=== PATIENT | male | born 2000 | race Caucasian/White ===

== ENCOUNTER 2022-06-12 13:30 | Emergency (ER) | payer MEDICAID, SELFPAY ==
--- NOTE | ~2022-06-12 | XR_ITS ---
EXAMINATION: XR HAND, LEFT CLINICAL INFORMATION: Left hand pain status post injury. COMPARISON: None TECHNIQUE: PA, lateral, and oblique views of the left hand. An indicator arrow points to the second digit. FINDINGS: A bandage overlies the second digit. There is no acute fracture or dislocation. The joint spaces are unremarkable. The carpal bones are normally aligned. The distal radius and ulna are intact. The soft tissues are unremarkable. No radiopaque foreign body. XR/XR hand LT min 3V IMPRESSION: No acute fracture or significant degenerative changes. No radiopaque foreign body.
--- NOTE | 2022-06-12 13:35 | ED.UPPEXIN ---
HPI - Extremity Injury (Upper) General Chief Complaint: Wound/Laceration <CHRISTIAN Smith - Last Filed: 06/12/22 13:36> Stated Complaint: Finger lac <CHRISTIAN Smith - Last Filed: 06/12/22 13:36> Time Seen by Provider: 06/12/22 14:14 <CHRISTIAN Smith - Last Filed: 06/12/22 13:36> Source: patient and family ( co-worker at bedside) <CHRISTIAN Camargo - Last Filed: 06/12/22 15:22> Mode of arrival: ambulatory <CHRISTIAN Camargo Last Filed: 06/12/22 15:22> Limitations: language barrier ( Bulgarian-speaking) <CHRISTIAN Camargo Last Filed: 06/12/22 15:22> History of Present Illness HPI narrative: 21-year-old male presenting to the ER with complaints of a left index finger laceration that occurred prior to arrival while he was at work cutting wrong ribs. He denies being up-to-date on tetanus. He denies any bony tenderness or thoughts of foreign bodies. He denies any paresthesias or any other symptoms complaints or concerns at this time. <CHRISTIAN Camargo - Last Filed: 06/12/22 15:22> MD complaint: injury to: left and finger ( Index finger) <CHRISTIAN Camargo - Last Filed: 06/12/22 15:22> Onset (ago): minute(s) ( prior to arrival) <CHRISTIAN Camargo Last Filed: 06/12/22 15:22> Other injuries: none <CHRISTIAN Camargo Last Filed: 06/12/22 15:22> Place: work <CHRISTIAN Camargo Last Filed: 06/12/22 15:22> Severity: mild <CHRISTIAN Camargo Last Filed: 06/12/22 15:22> Relieving factors: none <CHRISTIAN Camargo Last Filed: 06/12/22 15:22> Exacerbating factors: movement of extremity ( and palpation) <CHRISTIAN Camargo Last Filed: 06/12/22 15:22> Context: laceration <CHRISTIAN Camargo Last Filed: 06/12/22 15:22> Associated symptoms: denies other symptoms <CHRISTIAN Camargo - Last Filed: 06/12/22 15:22> Treatments prior to arrival: bandage <CHRISTIAN Camargo - Last Filed: 06/12/22 15:22> Related Data Home Medications: Previous Rx's Medication Instructions Recorded cephalexin 500 mg capsule 500 mg PO BID 10 days #20 caps 06/12/22 ibuprofen 800 mg tablet 800 mg PO Q8H PRN pain #14 tabs 06/12/22 <CHRISTIAN Smith - Last Filed: 06/12/22 13:36> Allergies/Adverse Reactions: Allergies Allergy/AdvReac Type Severity Reaction Status Date / Time No Known Allergies Allergy Verified 06/12/22 13:34 <CHRISTIAN Smith - Last Filed: 06/12/22 13:36> Review of Systems Review of Systems: Constitutional : No Fever, No Chills, Cardiovascular : No Chest Pain, No SOB Respiratory : No Dyspnea Gastrointestinal : No abdominal pain Musculoskeletal : No Joint Swelling Skin : positive skin laceration, No Foreign bodies, No rash, No surrounding erythema Neuro : No Weakness, No Numbness/tingling Psych : No SI/HI/thoughts of self injury <CHRISTIAN Camargo - Last Filed: 06/12/22 15:22> Yes all other systems are reviewed and are negative <CHRISTIAN Camargo - Last Filed: 06/12/22 15:22> PMFSH Past Medical History Attestation statement: The following information was validated with the patient. <CHRISTIAN Camargo - Last Filed: 06/12/22 15:22> Source: old records reviewed and nursing notes reviewed <CHRISTIAN Camargo - Last Filed: 06/12/22 15:22> Medical History: Medical History Asthma <CHRISTIAN Smith - Last Filed: 06/12/22 13:36> Social History Social History: Social History Advance Directives: No Advance Directives Information Provided: No <CHRISTIAN Smith - Last Filed: 06/12/22 13:36> Physical Exam Vital Signs: Vital Signs: Last Vital Signs Temp 97.7 F 06/12/22 13:38 Pulse 105 H 06/12/22 13:38 Resp 16 06/12/22 13:38 BP 141/115 H 06/12/22 13:38 Pulse Ox 98 06/12/22 13:38 O2 Del Method 06/12/22 13:38 BMI result Body Mass Index 23.5 <CHRISTIAN Smith - Last Filed: 06/12/22 13:36> Vital Signs: Last Vital Signs Temp 97.7 F 06/12/22 13:38 Pulse 105 H 06/12/22 13:38 Resp 16 06/12/22 13:38 BP 141/115 H 06/12/22 13:38 Pulse Ox 98 06/12/22 13:38 O2 Del Method 06/12/22 13:38 BMI result Body Mass Index 23.5 vital signs have been reviewed as normal and appeared to be correct. Blood pressure 141/115 Heart rate 105. Respiration rate normal. Temperature normal. Oxygen saturation normal. <CHRISTIAN Camargo - Last Filed: 06/12/22 15:22> Appearance: Alert. Oriented X3. No acute distress. Head: Normal external exam. Normocephalic. Atraumatic. Eyes: PERRLA. EOMI. Conjunctiva and sclera normal. Eyelids normal. ENT: Pharynx normal. Uvula midline. Moist mucous membranes. Neck: Normal inspection. Neck supple. FROM. CVS: Normal heart rate and rhythm. Respiratory: No respiratory distress. Painless inspiration. Skin: Skin warm and dry. Normal skin color. Normal skin turgor. patient with 1 and have flap laceration to left index finger at the radial aspect no active bleeding or foreign bodies or bony tenderness or obvious ligamentous or tendon injury noted or signs of infection. No additional rashes/lesions/lacerations noted. Extremities: Extremities exhibit normal range of motion. Extremities nontender. Neuro: Oriented X 3. No motor deficit. No sensory deficit. Reflexes normal. Normal steady gait. No focal neuro deficits noted. Vascular: + radial pulses/+ 2 distal pedal pulses/+2 dorsalis pedis b/l. Normal cap refill. No cyanosis noted to upper extremity nails and lower extremity toes nails. 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 Actively bleeding on arrival. Limited ROM due to pain. XR, tdap, abx, lidocaine ordered for anticipated suture repair. 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 Actively bleeding on arrival. Limited ROM due to pain. XR, tdap, abx, lidocaine ordered for anticipated suture repair. <CHRISTIAN Camargo - Last Filed: 06/12/22 15:22> Reevaluation(s) Reevaluation #1: Patient now status post laceration repair with 7 interrupted simple running stitch. Tetanus updated. imaging obtained and negative for any acute processes. Not consistent with fracture/obvious ligamentous or tendon injury or infection. Not consistent with arterial bleed. Will DC home with symptomatic treatment antibiotics along with instructions to return in 10-14 days for suture removal and to follow up prior if signs of infection. Patient understands agrees the plan. <CHRISTIAN Camargo - Last Filed: 06/12/22 15:22> Time: 15:20 <CHRISTIAN Camargo - Last Filed: 06/12/22 15:22> Medications Administered Discontinued Medications Generic Name Dose Route Start Last Admin Trade Name Brice PRN Reason Stop Dose Admin Amoxicillin/Clavulanate Potassium 875 mg 06/12/22 13:34 06/12/22 14:16 Amoxicillin/Potassium Clav 875 Mg Tablet PO 06/12/22 13:35 875 mg ONCE ONE Administration Diphtheria/Tetanus/Acell Pertussis 0.5 ml 06/12/22 13:34 06/12/22 14:17 Diphth,Pertus(Acell),Tet Adult 0.5 Ml Syringe IM 06/12/22 13:35 0.5 ml .ONCE ONE Administration Ibuprofen 600 mg 06/12/22 13:34 06/12/22 14:16 Ibuprofen 600 Mg Tablet PO 06/12/22 13:35 600 mg ONCE ONE Administration Lidocaine HCl 5 ml 06/12/22 14:26 06/12/22 14:28 Lidocaine Hcl 1 % Mpf 5 Ml Vial SUBCUT 06/12/22 14:27 5 ml ONCE ONE Administration Lidocaine HCl 5 ml 06/12/22 14:26 06/12/22 14:28 Lidocaine Hcl 1 % Mpf 5 Ml Vial SUBCUT 06/12/22 14:27 5 ml ONCE ONE Administration <CHRISTIAN Smith - Last Filed: 06/12/22 13:36> Medications Administered Discontinued Medications Generic Name Dose Route Start Last Admin Trade Name Freq PRN Reason Stop Dose Admin Amoxicillin/Clavulanate Potassium 875 mg 06/12/22 13:34 06/12/22 14:16 Amoxicillin/Potassium Clav 875 Mg Tablet PO 06/12/22 13:35 875 mg ONCE ONE Administration Diphtheria/Tetanus/Acell Pertussis 0.5 ml 06/12/22 13:34 06/12/22 14:17 Diphth,Pertus(Acell),Tet Adult 0.5 Ml Syringe IM 06/12/22 13:35 0.5 ml .ONCE ONE Administration Ibuprofen 600 mg 06/12/22 13:34 06/12/22 14:16 Ibuprofen 600 Mg Tablet PO 06/12/22 13:35 600 mg ONCE ONE Administration Lidocaine HCl 5 ml 06/12/22 14:26 06/12/22 14:28 Lidocaine Hcl 1 % Mpf 5 Ml Vial SUBCUT 06/12/22 14:27 5 ml ONCE ONE Administration Lidocaine HCl 5 ml 06/12/22 14:26 06/12/22 14:28 Lidocaine Hcl 1 % Mpf 5 Ml Vial SUBCUT 06/12/22 14:27 5 ml ONCE ONE Administration <CHRISTIAN Camargo - Last Filed: 06/12/22 15:22> Medical Decision Making Independent Interpretation I performed an independent interpretation of an: Plain X-Ray <CHRISTIAN Camargo - Last Filed: 06/12/22 15:22> Interpretation: CLINICAL INFORMATION: Left hand pain status post injury.? COMPARISON: None? TECHNIQUE: PA, lateral, and oblique views of the left hand. An indicator arrow points to the second digit. FINDINGS: A bandage overlies the second digit. There is no acute fracture or dislocation. The joint spaces are unremarkable. The carpal bones are normally aligned. The distal radius and ulna are intact. The soft tissues are unremarkable. No radiopaque foreign body. XR/XR hand LT min 3V IMPRESSION: No acute fracture or significant degenerative changes. No radiopaque foreign body. <CHRISTIAN Camargo - Last Filed: 06/12/22 15:22> Procedures Laceration Laceration 1: Site: hand ( Index finger) <CHRISTIAN Camargo - Last Filed: 06/12/22 15:22> Side (If applicable): left <CHRISTIAN Camargo - Last Filed: 06/12/22 15:22> Size (cm): 2 <CHRISTIAN Camargo - Last Filed: 06/12/22 15:22> Description: flap <CHRISTIAN Camargo - Last Filed: 06/12/22 15:22> Depth: simple, single layer <CHRISTIAN Camargo - Last Filed: 06/12/22 15:22> Local Anesthetic: lidocaine 1% <CHRISTIAN Camargo Last Filed: 06/12/22 15:22> Amount of anesthesia used (mL): 10 <CHRISTIAN Camargo - Last Filed: 06/12/22 15:22> Pre-repair: wound explored, irrigated extensively and deep structures intact <CHRISTIAN Camargo - Last Filed: 06/12/22 15:22> Skin layer closed with: nylon <CHRISTIAN Camargo - Last Filed: 06/12/22 15:22> Size (cm): 4-0 <CHRISTIAN Camargo - Last Filed: 06/12/22 15:22> Number of sutures: 7 <CHRISTIAN Camargo Last Filed: 06/12/22 15:22> Technique: simple, interrupted <CHRISTIAN Camargo - Last Filed: 06/12/22 15:22> Discharge Plan Discharge Clinical Impression: Laceration, Work related injury <CHRISTIAN Smith Last Filed: 06/12/22 13:36> Patient Disposition: Home, Self-Care <CHRISTIAN Smith Last Filed: 06/12/22 13:36> Instructions: Finger Laceration (ED), Return to Work Instructions (ED) <CHRISTIAN Smith - Last Filed: 06/12/22 13:36> Additional Instructions: Please return in 10 days for suture removal or any sooner if any new or worsening symptoms such as drainage, redness or worsening pain or surrounding redness Regrese en 10 d?as para retirar la sutura o antes si presenta s?ntomas nuevos o que empeoran, jeanette drenaje, enrojecimiento o empeoramiento del dolor o enrojecimiento circundante. <CHRISTIAN Smith - Last Filed: 06/12/22 13:36> Prescriptions: New cephalexin 500 mg capsule 500 mg PO BID 10 Days Qty: 20 0RF ibuprofen 800 mg tablet 800 mg PO Q8H PRN (Reason: pain) Qty: 14 0RF <CHRISTIAN Smith - Last Filed: 06/12/22 13:36> Referrals: Lani Whitten PA [Emergency Midlevel Provider] - 10 days (for suture removal ) <CHRISTIAN Smith - Last Filed: 06/12/22 13:36> Stand Alone Forms: Work/School Release <CHRISTIAN Smith - Last Filed: 06/12/22 13:36> Print Language: Bulgarian <CHRISTIAN Smith - Last Filed: 06/12/22 13:36>
[2022-06-12 13:38] VITALS: BP 141/115; PULSE 105; RESP 16; TEMP 36.5; O2SAT 98; BMI 23.5
[2022-06-12] MEDS: Ibuprofen 600 MG TABLET PO (14:16)
[2022-06-12] MEDS: Amoxicillin/Potassium Clav 875 MG TABLET PO (14:16)
[2022-06-12] MEDS: Diphth,Pertus(ACell),Tet Adult 0.5 ML SYRINGE IM (14:17)
[2022-06-12] MEDS: Lidocaine HCl 1 % MPF 5 ML VIAL SUBCUT ×2 (14:28)
[2022-06-12 15:25] VITALS: BP 123/60; PULSE 81; RESP 16; TEMP 36.8; O2SAT 97
[2022-06-12] MEDS: Bacitracin Oint 14 GM TUBE 1 APPL TOPICAL (15:44)
== END 2022-06-12 15:45 | disposition home or self-care (01) ==
PROVIDERS: Emergency Provider Emergency Medicine
DX: S61.211A Laceration without foreign body of left index finger without damage to nail, initial encounter (principal); S60.411A Abrasion of left index finger, initial encounter; W26.0XXA Contact with knife, initial encounter; Y93.G3 Activity, cooking and baking; Y92.9 Unspecified place or not applicable; Y99.0 Civilian activity done for income or pay; Z79.899 Other long term (current) drug therapy; Z23 Encounter for immunization
CPT/HCPCS: 12001; 73130; 90471; 90715; 99284

== ENCOUNTER 2022-06-22 10:39 | Emergency (ER) | payer MEDICAID, SELFPAY ==
[2022-06-22 10:44] VITALS: BP 131/63; PULSE 95; RESP 16; TEMP 36.6; O2SAT 98; BMI 24.3
--- NOTE | 2022-06-22 11:39 | ED_ITS ---
HPI - Wound/Laceration General Chief Complaint: Wound/Laceration Stated Complaint: Suture removal Time Seen by Provider: 06/22/22 11:36 Source: patient Limitations: no limitations History of Present Illness HPI narrative: 21-year-old male returns ER for suture removal of the left index finger. Laceration occurred on 06/12/2022. No complaints at this time patient denies any wound discharge or dehiscence. Related Data Previous Rx's Medication Instructions Recorded cephalexin 500 mg capsule 500 mg PO BID 10 days #20 caps 06/12/22 ibuprofen 800 mg tablet 800 mg PO Q8H PRN pain #14 tabs 06/12/22 Allergies Allergy/AdvReac Type Severity Reaction Status Date / Time No Known Allergies Allergy Verified 06/12/22 13:34 Review of Systems Review of Systems: Constitutional : No Fever, No Chills, Cardiovascular : No Chest Pain, No SOB Respiratory : No Dyspnea Gastrointestinal : No abdominal pain Musculoskeletal : No Joint Swelling Skin : healing skin wound left index finger Neuro : No Weakness, No Numbness/tingling Psych : No SI/HI/thoughts of self injury Yes all other systems are reviewed and are negative [facility] Past Medical History Attestation statement: The following information was validated with the patient. Medical History Asthma Social History Social History Advance Directives: No Advance Directives Information Provided: No Physical Exam Vital Signs: Vital Signs: Last Vital Signs Temp 98 F 06/22/22 10:44 Pulse 95 06/22/22 10:44 Resp 16 06/22/22 10:44 BP 131/63 06/22/22 10:44 Pulse Ox 98 06/22/22 10:44 O2 Del Method 06/22/22 10:44 BMI result Body Mass Index 24.3 vital signs have been reviewed as normal and appeared to be correct. Blood pressure 141/115 Heart rate 105. Respiration rate normal. Temperature normal. Oxygen saturation normal. Appearance: Alert. Oriented X3. No acute distress. Head: Normal external exam. Normocephalic. Atraumatic. Eyes: PERRLA. EOMI. Skin: skin warm and dry well-healing wound to the left index finger sutures in place no wound dehiscence noted. No bloody discharge or purulent discharge. Extremities: Left index finger full range of motion flexion extension Neuro: Oriented X 3. No motor deficit. Course Course Course Narrative: Suture removal Wound check Wound dehiscence Medical Decision Making Medical Decision Making [facility] Narrative: 21-year-old male returns for suture removal no obvious wound dehiscence wound clean sutures removed tolerated well dressing applied no wound dehiscence or purulent discharge or erythema or induration noted Discharge Plan Discharge Clinical Impression: Laceration Patient Disposition: Home, Self-Care Instructions: Laceration (ED) Additional Instructions: Keep wound clean and dry return if symptoms worsen Prescriptions: No Action cephalexin 500 mg capsule 500 mg PO BID 10 Days Qty: 20 0RF ibuprofen 800 mg tablet 800 mg PO Q8H PRN (Reason: pain) Qty: 14 0RF Stand Alone Forms: Work/School Release Print Language: Citizen Of [place]
--- NOTE | 2022-06-22 12:05 | PC.NURSE ---
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
== END 2022-06-22 12:07 | disposition home or self-care (01) ==
PROVIDERS: Emergency Provider Emergency Medicine
DX: Z48.02 Encounter for removal of sutures (principal)
CPT/HCPCS: 99282; 99283

== ENCOUNTER 2023-02-14 11:43 | Emergency (ER) | payer OTHER, SELFPAY ==
--- NOTE | 2023-02-14 | ECG_ITS ---
Test Reason : CHEST PAIN Blood Pressure : / mmHG Vent. Rate : 069 BPM Atrial Rate : 069 BPM P-R Int : 122 ms QRS Dur : 076 ms QT Int : 382 ms P-R-T Axes : 015 018 012 degrees QTc Int : 409 ms Normal sinus rhythm with sinus arrhythmia Normal ECG No previous ECGs available Referred By: Generic ED Physician Electronically Signed By:SUYAPA DUBOSE
--- NOTE | ~2023-02-14 | XR_ITS ---
EXAMINATION: XR CHEST CLINICAL INFORMATION: Shortness of breath. COMPARISON: None available. TECHNIQUE: Frontal view of the chest was obtained. FINDINGS: The cardiomediastinal silhouette is normal. There is no focal lung consolidation or pleural effusion. The bony structures and soft tissues are unremarkable. XR/XR chest 1V IMPRESSION: No active cardiopulmonary disease.
[2023-02-14 12:02] VITALS: BP 117/57; PULSE 73; RESP 18; TEMP 36.8; O2SAT 100; BMI 29.0
--- NOTE | 2023-02-14 12:08 | ED_ITS ---
HPI - General Adult General Chief complaint: Upper Respiratory Symptoms Stated complaint: fever, headache, chest pain Time Seen by Provider: 02/14/23 12:29 Source: patient Mode of arrival: ambulatory Limitations: no limitations History of Present Illness HPI narrative: This is a 22-year-old male without significant medical history presenting to the emergency department with complaints of fatigue, malaise, body aches, diffuse headache , subjective fevers and chills, cough, shortness of breath for the past 4 days worsening. Known sick contacts. Patient reports chest discomfort w/ cough in the substernal region non radiating. Not a smoker not on hormones, no long travel. No significant personal or family cardiac issues Related Data Previous Rx's Medication Instructions Recorded cephalexin 500 mg capsule 500 mg PO BID 10 days #20 caps 06/12/22 ibuprofen 800 mg tablet 800 mg PO Q8H PRN pain #14 tabs 06/12/22 albuterol sulfate 90 mcg/actuation 2 inh inhalation Q4-6H PRN 02/14/23 breath activated powder inhaler shortness of breath or wheezing #1 ea Allergies Allergy/AdvReac Type Severity Reaction Status Date / Time No Known Allergies Allergy Verified 06/12/22 13:34 Review of Systems 2 Review of Systems: Constitutional : No Weight loss, + Fever, + Chills, No Fatigue, No Malaise ENT/Mouth : No sore throat, No Rhinorrhea Eyes: No Eye Pain, No Swelling, No Redness Cardiovascular : + Chest Pain, + SOB, No Dyspnea on Exertion, No Orthopnea, No Edema, No Palpitations Respiratory : + Cough, No Sputum, No Wheezing Gastrointestinal : No Nausea, No Vomiting, No Diarrhea, No Constipation, No abdominal Pain, No Hematochezia, No Melena Genitourinary : No Dysuria, No Urinary Frequency, No Hematuria, Musculoskeletal : No joint pain, No Myalgias, No Joint Swelling Skin : No Skin Lesions, No rash Neuro : No Weakness, No Numbness, No Dizziness, + Headache Psych : No Anxiety/Panic, No Depression All other systems reviewed and are negative Yes all other systems are reviewed and are negative [facility] Past Medical History Attestation statement: The following information was validated with the patient. Source: old records reviewed and nursing notes reviewed Medical History Asthma Social History Social History Advance Directives: No Advance Directives Information Provided: Yes Physical Exam ED Vital Signs: Vital Signs - 24 hr 02/14/23 12:02 02/14/23 13:57 Temperature 98.2 F 98.2 F Pulse Rate 73 63 Respiratory Rate 18 18 Blood Pressure 117/57 L 139/58 L Pulse Oximetry 100 98 Oxygen Delivery Method Room Air Room Air BMI result Body Mass Index 29.0 vss Appearance: Alert.? Oriented X3.? No acute distress.? Head: Normocephalic, atraumatic, no step-offs or deformities Eyes: Pupils equal, round and reactive to light.? CVS: Normal heart rate and rhythm.? Pulses normal.? Respiratory: No respiratory distress.? Breath sounds normal.? Abdomen: Soft and nontender.? Skin: Skin warm and dry.? Normal skin color.? Normal skin turgor.? Extremities: No lower extremity edema.? No calf ttp. 5/5 strength to bilateral upper and lower extremities Neuro: Oriented X 3.? No motor deficit.? No sensory deficit. CN 2-12 intact Course Course Course Narrative: RME: 22 yold male presents to the ED for coughing, fever, headache, chills, and nasal congestion since yesterday. SARS swab ordered Reevaluation(s) Reevaluation #1: Flu/COVID/RSV negative. Chest x-ray pending. Labs pending, EKG nonischemic Time: 13:55 Reevaluation #2: CBC within normal limits. Chemistry unremarkable. Troponin negative, EKG nonischemic, unlikely ACS, no need for 2nd troponin heart score 0. Serology negative. Chest x-ray unremarkable. At this time patient to be discharged home likely viral illness. Patient feeling better after Tylenol. Educated patient on diagnosis and treatment plan, answered all question, patient verbalizes understanding. At this time patient will be discharged home, advised to return with new or worsening symptoms. Educated on worrisome signs and symptoms and when to return. At this time I feel comfortable discharge home. Time: 15:05 Medications Administered Discontinued Medications Generic Name Dose Route Start Last Admin Trade Name Freq PRN Reason Stop Dose Admin Acetaminophen 650 mg 02/14/23 13:48 02/14/23 13:59 Acetaminophen 325 Mg Tablet PO 02/14/23 13:49 650 mg ONCE ONE Administration Medical Decision Making Medical Decision Making [facility] Narrative: 1352 22-year-old male presents with substernal chest discomfort, fatigue, malaise, body aches and pains, congestion, cough, diffuse headache x3 days Physical exam benign Likely viral illness. I do not suspect meningitis, encephalitis, stroke, posterior stroke, pneumonia, PE, patient PERC negative, no signs of ACS. Unlikely dissection. Plan basic labs, EKG, viral test Differential Diagnosis Differential Diagnoses: The differential diagnosis associated with the presentation includes Likely viral illness. I do not suspect meningitis, encephalitis, stroke, posterior stroke, pneumonia, PE, patient PERC negative, no signs of ACS. Unlikely dissection. Admission/Observation Consideration of admission/observation: Escalation of care including admission/observation considered Lab Data [facility] Lab Attestation statement: I reviewed the patient's lab results. 02/14/23 13:56 02/14/23 13:56 Labs: Lab Results 02/14/23 02/14/23 Range/Units 12:16 13:56 WBC 9.1 (4.8-10.8) X10*3/uL RBC 5.59 (4.60-5.80) X10*6/uL Hgb 16.8 (14.0-18.0) g/dl Hct 48.2 (42.0-52.0) % MCV 86.2 (80.0-98.0) fL MCH 30.1 (27.0-33.0) pg MCHC 34.9 (31.0-36.0) g/dl RDW 12.4 (11.0-16.0) % Plt Count 211 (160-400) X10*3/uL MPV 11.0 (9.4-12.4) fL Immature Gran % (Auto) 0.2 (0.0-0.4) % Neut % (Auto) 70.8 (45-73) % Lymph % (Auto) 18.2 L (20-40) % [place] % (Auto) 9.5 (2-11) % Eos % (Auto) 1.1 (0-4) % Baso % (Auto) 0.2 (0-2) % Lymph # (Auto) 1.7 (1.2-4.9) X10*3/uL [place] # (Auto) 0.9 (0.1-1.2) X10*3/uL Eos # (Auto) 0.1 (0.0-0.4) X10*3/uL Baso # (Auto) 0.0 (0.0-0.2) X10*3/uL Abs Immat Gran (auto) 0.02 (0.00-0.03) X10*3/uL Absolute Neuts (auto) 6.4 (2.0-8.3) x10*3/uL Absolute Nucleated RBC 0.000 (0.0-0.012) X10*3/uL Nucleated RBC % (auto) 0.0 (0.0-0.2) /100WBC Sodium 139 (135-145) mmol/L Potassium 3.8 (3.3-5.1) mmol/L Chloride 108 (96-108) mmol/L Carbon Dioxide 19 L (22-29) mmol/L Anion Gap 16 (12-20) BUN 7 L (9-16) mg/dL Creatinine 0.80 (0.5-1.4) mg/dL Estim Creat Clear Calc 151.5 Estimated GFR > 60 Random Glucose 86 (60-115) mg/dL Calcium 9.8 (8.4-10.2) mg/dL Total Bilirubin 0.5 (0.0-1.0) mg/dL AST 26 (5-37) U/L ALT 40 (0-40) U/L Alkaline Phosphatase 73 (39-117) U/L Troponin I High Sens < 2.7 (<3.5-35.0) ng/L Total Protein 7.9 (6.5-8.0) g/dL Albumin 4.7 (3.5-5.0) g/dL Influenza Type A (PCR) NEGATIVE (Negative) Influenza Type B (PCR) NEGATIVE (Negative) RSV RNA Qual (PCR) NEGATIVE (Negative) SARS-CoV-2 RNA (RT-PCR) NEGATIVE (Negative) Independent Interpretation I performed an independent interpretation of an: EKG (Ventricular rate of 69, AR normal, QRS normal, QT/QTC normal. No ST elevations or inversions concerning for acute ischemia) and Plain X-Ray Radiology Impression Discussion of test interpretation with radiology: I have reviewed the radiologist's reading. Critical Care Time Critical Care Time Critical Care Time: No Discharge Plan Discharge Clinical Impression: Viral infection Patient Disposition: Home, Self-Care Instructions: Viral Syndrome (ED) Additional Instructions: Take your medications as prescribed. If you were prescribed antibiotics today, it is important that you take your medication to their entirety, do not skip any doses, do not finish them early. Follow-up with your primary care provider this week. Return to the emergency department with new or worsening symptoms. Such as fevers, chills, chest pain, shortness of breath, nausea, vomiting, dizziness, headache, vision changes, lethargy In case of emergency call 911 XR/XR chest 1V IMPRESSION: No active cardiopulmonary disease. Prescriptions: New albuterol sulfate 90 mcg/actuation aerosol powdr breath activated 2 inh inhalation Q4-6H PRN (Reason: shortness of breath or wheezing) Qty: 1 0RF No Action cephalexin 500 mg capsule 500 mg PO BID 10 Days Qty: 20 0RF ibuprofen 800 mg tablet 800 mg PO Q8H PRN (Reason: pain) Qty: 14 0RF Referrals: Physician,None [Primary Care Provider] - 2 days Stand Alone Forms: Work/School Release Interventions: ED Discharge Assessment Last Done: 02/14/23 15:29 Discharge Date/Time: 02/14/23 15:30
[2023-02-14 13:05] LABS: Influenza A PCR NEGATIVE (Negative); Influenza B PCR NEGATIVE (Negative); Resp Syncy Virus RNA Qual PCR NEGATIVE (Negative); SARS COV2 PCR INHOUSE NEGATIVE (Negative)
[2023-02-14 13:57] VITALS: BP 139/58; PULSE 63; RESP 18; TEMP 36.8; O2SAT 98
[2023-02-14] MEDS: Acetaminophen 325 MG TABLET 650 MG PO (13:59)
[2023-02-14 14:07] LABS: MANUAL DIFF FLAG NO
[2023-02-14 14:09] LABS: Basophils Percent Auto 0.2 % (0-2); Eosinophils Absolute Auto 0.1 X10*3/uL (0.0-0.4); Eosinophils Percent Auto 1.1 % (0-4); Hematocrit 48.2 % (42.0-52.0); Hemoglobin 16.8 g/dl (14.0-18.0); Imm Gran Abs Auto 0.02 X10*3/uL (0.00-0.03); Imm Gran Pct Auto 0.2 % (0.0-0.4); Lymphocytes Absolute Auto 1.7 X10*3/uL (1.2-4.9); Lymphocytes Percent Auto 18.2 % (20-40); Mean Corpuscular HGB Conc 34.9 g/dl (31.0-36.0); Mean Corpuscular Hemoglobin 30.1 pg (27.0-33.0); Mean Corpuscular Volume 86.2 fL (80.0-98.0); Monocytes Absolute Auto 0.9 X10*3/uL (0.1-1.2); Monocytes Percent Auto 9.5 % (2-11); Neutrophils Absolute Auto 6.4 x10*3/uL (2.0-8.3); Neutrophils Percent Auto 70.8 % (45-73); Platelet Count 211 X10*3/uL (160-400); Red Blood Count 5.59 X10*6/uL (4.60-5.80); Red Cell Distribution Width 12.4 % (11.0-16.0); White Blood Count 9.1 X10*3/uL (4.8-10.8)
[2023-02-14 14:22] LABS: Alanine Aminotransferase 40 U/L (0-40); Albumin Level 4.7 g/dL (3.5-5.0); Alkaline Phosphatase 73 U/L (39-117); Anion Gap 16 (12-20); Aspartate Amino Transferase 26 U/L (5-37); Bilirubin Total 0.5 mg/dL (0.0-1.0); Blood Urea Nitrogen 7 mg/dL (9-16); Calcium 9.8 mg/dL (8.4-10.2); Carbon Dioxide 19 mmol/L (22-29); Chloride 108 mmol/L (96-108); Creatinine Clr Calc Pharmacy 151.5; Estimated Glomerular Filt Rate > 60; Glucose Random 86 mg/dL (60-115); Potassium 3.8 mmol/L (3.3-5.1); Sodium 139 mmol/L (135-145); Total Protein 7.9 g/dL (6.5-8.0)
[2023-02-14 14:31] LABS: Troponin-I High Sensitivity < 2.7 ng/L (<3.5-35.0)
[2023-02-14 15:12] VITALS: BP 143/67; PULSE 78; RESP 16; TEMP 36.8; O2SAT 97
== END 2023-02-14 15:30 | disposition home or self-care (01) ==
PROVIDERS: Physician Assistant; Emergency Provider Emergency Medicine
DX: B34.9 Viral infection, unspecified (principal); R50.9 Fever, unspecified; Z20.822 Contact with and (suspected) exposure to COVID-19; Z20.828 Contact with and (suspected) exposure to other viral communicable diseases
CPT/HCPCS: 0241U; 36415; 71045; 80053; 84484; 85025; 93005; 99283; 99284

== ENCOUNTER 2023-08-06 17:05 | Emergency (ER) | payer OTHER, SELFPAY ==
[2023-08-06 17:56] VITALS: BP 133/55; PULSE 80; RESP 20; TEMP 36.1; O2SAT 98; BMI 32.3
--- NOTE | 2023-08-06 18:01 | ED.URI ---
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 He denies any sick contacts or recent travel. He is able to swallow. He denies any shortness of breath or chest pain No abdominal pain nausea vomiting Related Data Previous Rx's Medication Instructions Recorded cephalexin 500 mg capsule 500 mg PO BID 10 days #20 caps 06/12/22 ibuprofen 800 mg tablet 800 mg PO Q8H PRN pain #14 tabs 06/12/22 albuterol sulfate 90 mcg/actuation 2 inh inhalation Q4-6H PRN 02/14/23 breath activated powder inhaler shortness of breath or wheezing #1 ea Allergies Allergy/AdvReac Type Severity Reaction Status Date / Time No Known Allergies Allergy Verified 08/06/23 18:00 Review of Systems Constitutional: Constitutional: Denies body ache(s), Reports chills, Denies fever(s), Denies headache(s) and Reports malaise ENT: Denies headache(s) and Reports sore throat Cardiovascular: Cardiovascular: Denies chest pain and Denies dyspnea Respiratory: Respiratory: Reports cough and Denies dyspnea Gastrointestinal: Gastrointestinal: Denies abdominal pain, Denies nausea and Denies vomiting Musculoskeletal: Musculoskeletal: Denies back pain Integumentary/Breasts: Skin/Breast: Denies rash Neurologic: Denies headache(s) Psychiatric: Psychiatric: Denies anxiety [facility] Past Medical History Medical History Asthma Social History Social History Advance Directives: No Advance Directives Information Provided: No Physical Exam Vital Signs: Vital Signs: Last Vital Signs Temp 97.7 F 08/06/23 22:14 Pulse 74 08/06/23 22:14 Resp 18 08/06/23 22:14 BP 113/63 08/06/23 22:14 Pulse Ox 100 08/06/23 22:14 O2 Del Method Room Air 08/06/23 22:14 BMI result Body Mass Index 32.3 Const: General: healthy appearing, comfortable, no acute distress, alert and awake Nutritional Appearance: well nourished Orientation/consciousness: patient oriented x3 HEENT: Head: Yes normocephalic and Yes atraumatic Throat: Yes posterior oropharynx normal (Mild menstrual pharynx erythema without exudates), Yes tonsils normal and Yes uvula midline Eyes: Eyelids: Yes eyelids normal Conjunctivae: conjunctivae normal Sclerae: sclerae normal Corneas: corneas normal Pupils: Equal, round and reactive pupils present EOM: EOMs intact bilaterally Neck: Neck: Yes full ROM Resp: Effort & Inspection: normal respiratory effort, able to speak in complete sentences, no audible wheezes and not labored Auscultation: clear to auscultation bilaterally Cardio: Rate: regular rate Rhythm: regular rhythm GI: Inspection: No distended Palpation (GI): Soft to palpation, not firm, nontender, no guarding and not rigid Skin: General skin exam: elasticity normal Neuro: General: patient oriented x3 Cranial nerves: Yes Equal, round and reactive pupils present and Yes Bilaterally intact EOM present Cognition (Neuro): normal cognition Course Course Course Narrative: This is an RME: Additional HPI, ROS, PE not included below will be deferred to primary provider. Since this is a 22-year-old male emergency department complaints of body aches, cough, chest pain, the last 2 days. On arrival, nontoxic appearing, vital signs within normal limits. He is speaking in full sentences under no acute distress. Plan: Viral swabs, and strep swabs Medical Decision Making Medical Decision Making [facility] Narrative: 22-year-old male presents for evaluation of flu-like symptoms. His physical exam is reassuring, no evidence of peritonsillar abscess. Patient is negative for influenza, COVID-19, strep throat. Patient will be treated with symptomatic care only Differential Diagnosis Differential Diagnoses: The differential diagnosis associated with the presentation includes Pharyngitis Upper respiratory infection Viral syndrome Influenza COVID-19 Lab Data Labs: Lab Results 08/06/23 Range/Units 18:33 Influenza Type A (PCR) NEGATIVE (Negative) Influenza Type B (PCR) NEGATIVE (Negative) RSV RNA Qual (PCR) NEGATIVE (Negative) SARS-CoV-2 RNA (RT-PCR) NEGATIVE (Negative) S. pyogenes GrpA LYN Negative (Negative) Discharge Plan Discharge Clinical Impression: Pharyngitis Patient Disposition: Home, Self-Care Instructions: Pharyngitis (ED) Additional Instructions: You tested negative for influenza, COVID-19, and strep throat Use ibuprofen/Tylenol for pain and saltwater gargles for the sore throat Drink lots of fluids Follow-up with your primary doctor Return for new or worsening symptoms Prescriptions: No Action cephalexin 500 mg capsule 500 mg PO BID 10 Days Qty: 20 0RF ibuprofen 800 mg tablet 800 mg PO Q8H PRN (Reason: pain) Qty: 14 0RF albuterol sulfate 90 mcg/actuation aerosol powdr breath activated 2 inh inhalation Q4-6H PRN (Reason: shortness of breath or wheezing) Qty: 1 0RF Stand Alone Forms: Work/School Release Interventions: ED Discharge Assessment Last Done: 08/06/23 22:14 Discharge Date/Time: 08/06/23 22:16
--- NOTE | 2023-08-06 18:35 | MHC.EDTECH ---
PATIENT RSV/COVID AND FLU SWAB AND STREAP SWAB COLLECTED ALL SENT TO LAB .
[2023-08-06 18:59] LABS: IDNOW Serial# 08D9AD1C; Strep A Nucleic Acid Negative (Negative)
[2023-08-06 19:21] LABS: Influenza A PCR NEGATIVE (Negative); Influenza B PCR NEGATIVE (Negative); Resp Syncy Virus RNA Qual PCR NEGATIVE (Negative); SARS COV2 PCR INHOUSE NEGATIVE (Negative)
[2023-08-06 22:14] VITALS: BP 113/63; PULSE 74; RESP 18; TEMP 36.5; O2SAT 100
== END 2023-08-06 22:16 | disposition home or self-care (01) ==
PROVIDERS: Physician Assistant Medical; Emergency Provider Emergency Medicine
DX: J02.9 Acute pharyngitis, unspecified (principal); R05.9 Cough, unspecified; Z11.52 Encounter for screening for COVID-19; Z20.828 Contact with and (suspected) exposure to other viral communicable diseases
CPT/HCPCS: 0241U; 87651; 99282; 99283